=== PATIENT | male | born 1935 | race African-American/Black ===

== ENCOUNTER → 2017-02-26 | Outpatient (CLI) | payer MEDICARE, BC ==
[2017-02-26 17:43] LABS: ASPARTATE AMINO TRANSFERASE 26 U/L (15-37); BLOOD UREA NITROGEN 19 mg/dL (7-18)
== END | disposition home or self-care (01) ==
LOC: LAB 17:00
PROVIDERS: ATTEND Internal Medicine Nephrology
DX: I12.9 Hypertensive chronic kidney disease with stage 1 through stage 4 chronic kidney disease, or unspecified chronic kidney disease (principal); N18.3 Chronic kidney disease, stage 3 (moderate); E55.9 Vitamin D deficiency, unspecified; N25.81 Secondary hyperparathyroidism of renal origin; R35.1 Nocturia; E03.9 Hypothyroidism, unspecified
CPT/HCPCS: 36415; 80053; 81003; 82570; 84156

== ENCOUNTER → 2017-05-22 | Outpatient (CLI) | payer MEDICARE, BC ==
[2017-05-22 09:40] LABS: HEMATOCRIT 28.6 % (39.2-51.8); HEMOGLOBIN 9.4 g/dL (13.7-18.0); WHITE BLOOD COUNT 6.7 x10^3/uL (3.4-10)
[2017-05-22 11:36] LABS: ASPARTATE AMINO TRANSFERASE 63 U/L (15-37); BLOOD UREA NITROGEN 17 mg/dL (7-18)
== END | disposition home or self-care (01) ==
LOC: LAB 09:23
PROVIDERS: ATTEND Nurse Practitioner Family
DX: E03.9 Hypothyroidism, unspecified (principal); D72.829 Elevated white blood cell count, unspecified; E87.1 Hypo-osmolality and hyponatremia; R73.01 Impaired fasting glucose
CPT/HCPCS: 36415; 80053; 83036; 84436; 84443; 85025

== ENCOUNTER → 2017-06-18 | Outpatient (CLI) | payer MEDICARE, BC ==
[2017-06-18 09:20] LABS: HEMATOCRIT 32.2 % (39.2-51.8); HEMOGLOBIN 10.5 g/dL (13.7-18.0); WHITE BLOOD COUNT 6.2 x10^3/uL (3.4-10)
[2017-06-18 09:32] LABS: ASPARTATE AMINO TRANSFERASE 24 U/L (15-37); BLOOD UREA NITROGEN 13 mg/dL (7-18)
== END | disposition home or self-care (01) ==
LOC: LAB 09:02
PROVIDERS: ATTEND Nurse Practitioner Family
DX: R61 Generalized hyperhidrosis (principal); R74.0 Nonspecific elevation of levels of transaminase and lactic acid dehydrogenase [LDH]
CPT/HCPCS: 36415; 80053; 85025

== ENCOUNTER → 2017-07-21 | Outpatient (CLI) | payer MEDICARE, BC | END | disposition home or self-care (01) | LOC: LAB 09:53 | PROVIDERS: ATTEND Family Medicine | DX: R61 Generalized hyperhidrosis (principal) | CPT/HCPCS: 36415; 82670; 84402; 84403 ==

== ENCOUNTER → 2018-01-30 | Outpatient (CLI) | payer MEDICARE, BC ==
[2018-01-30 08:20] LABS: BASOPHILS # (AUTO) 0.04 x10^3/uL (0-0.1); BASOPHILS % (AUTO) 1 % (0-1); EOSINOPHILS % (AUTO) 2 % (1-7); LYMPHOCYTES # (AUTO) 1.71 x10^3/uL (1-3.4); LYMPHOCYTES % (AUTO) 26 % (22-44); MD NO; MEAN CORPUSCULAR HEMOGLOBIN 28.2 pg (27.5-34.5); MEAN CORPUSCULAR HGB CONC 32.8 g/dL (33.2-36.2); MEAN PLATELET VOLUME 6.9 fL (7.4-10.4); MONOCYTES # (AUTO) 0.43 x10^3/uL (0.2-0.8); MONOCYTES % (AUTO) 7 % (2-9); NEUTROPHILS # (AUTO) 4.28 x10^3/uL (1.8-6.8); NEUTROPHILS % (AUTO) 65 % (42-75); PLATELET COUNT 205 x10^3/uL (130-400); RED BLOOD COUNT 4.59 x10^6/uL (4.38-5.82)
[2018-01-30 08:28] LABS: ALANINE AMINOTRANSFERASE 27 U/L (12-78); ALBUMIN 3.7 g/dL (3.4-5.0); ANION GAP 5 mmol/L (5-15); CALCIUM 9.4 mg/dL (8.5-10.1); CHLORIDE 109 mmol/L (98-107); CREATININE 1.39 mg/dL (0.7-1.3)
[2018-01-30 08:31] LABS: ALKALINE PHOSPHATASE 88 U/L (45-117); BILIRUBIN,TOTAL 0.5 mg/dL (0.2-1.0); TOTAL PROTEIN 8.1 g/dL (6.4-8.2)
[2018-01-30 08:32] LABS: MICROSCOPIC AUTO
[2018-01-30 08:38] LABS: CULTURE INDICATED? NO
== END | disposition home or self-care (01) ==
LOC: LAB 07:36
PROVIDERS: ATTEND Internal Medicine Nephrology
DX: I12.9 Hypertensive chronic kidney disease with stage 1 through stage 4 chronic kidney disease, or unspecified chronic kidney disease (principal); N18.3 Chronic kidney disease, stage 3 (moderate); N25.81 Secondary hyperparathyroidism of renal origin; E03.9 Hypothyroidism, unspecified; E78.5 Hyperlipidemia, unspecified; E55.9 Vitamin D deficiency, unspecified; R35.1 Nocturia
CPT/HCPCS: 36415; 80053; 81001; 82570; 84156; 85025

== ENCOUNTER → 2018-06-02 | Outpatient (CLI) | payer MEDICARE, BC ==
[2018-06-02 08:37] LABS: ANION GAP 7 mmol/L (5-15); CALCIUM 9.4 mg/dL (8.5-10.1); CHLORIDE 110 mmol/L (98-107); CHOLESTEROL, TOTAL 150 mg/dL (140-239); CREATININE 1.48 mg/dL (0.7-1.3); TRIGLYCERIDES 92 mg/dL (50-200); VLDL CHOLESTEROL 18 mg/dL (0-25)
[2018-06-02 08:38] LABS: MEAN CORPUSCULAR HEMOGLOBIN 28.7 pg (27.5-34.5); MEAN CORPUSCULAR HGB CONC 33.3 g/dL (33.2-36.2); MEAN PLATELET VOLUME 6.7 fL (7.4-10.4); PLATELET COUNT 190 x10^3/uL (130-400); RED BLOOD COUNT 4.46 x10^6/uL (4.38-5.82); RED CELL DISTRIBUTION WIDTH 16.1 % (9.4-14.8)
[2018-06-02 08:46] LABS: CHOL/HDL RATIO 3.2; HDL CHOL % 31 % (26-37); HDL CHOLESTEROL (DIRECT) 47 mg/dL (40-60); LDL CHOLESTEROL,CALCULATED 85 mg/dL (54-169); LDL/HDL RATIO 1.8 (0.5-3.0)
== END | disposition home or self-care (01) ==
LOC: LAB 08:09
PROVIDERS: ATTEND Family Medicine
DX: D64.9 Anemia, unspecified (principal); E78.2 Mixed hyperlipidemia; E03.8 Other specified hypothyroidism; E06.3 Autoimmune thyroiditis; N18.2 Chronic kidney disease, stage 2 (mild)
CPT/HCPCS: 36415; 80048; 80061; 84443; 85027

== ENCOUNTER → 2020-04-13 | Outpatient (CLI) | payer MEDICARE ==
[~2020-04-13] MED LIST: AMLO1CAP PO; ASPI-496 PO; CHOL10003 PO; HYDR-3240 PO; LEVO125T5 PO; LIOT5TAB10 PO; LOVA40TA2 PO; METF10007 PO; METO25TA91 PO; OMEP10CA5 PO; TADA5TAB2 PO
[2020-04-13 12:23] LABS: BASOPHILS # (AUTO) 0.02 x10^3/uL (0-0.1); BASOPHILS % (AUTO) 0 % (0-1); EOSINOPHILS # (AUTO) 0.09 x10^3/uL (0-0.4); EOSINOPHILS % (AUTO) 1 % (1-7); LYMPHOCYTES # (AUTO) 1.43 x10^3/uL (1-3.4); LYMPHOCYTES % (AUTO) 23 % (22-44); MD NO; MEAN CORPUSCULAR HEMOGLOBIN 27.9 pg (27.5-34.5); MEAN CORPUSCULAR HGB CONC 31.6 g/dL (33.2-36.2); MEAN CORPUSCULAR VOLUME 88.4 fL (81-97); MEAN PLATELET VOLUME 7.1 fL (7.4-10.4); MONOCYTES # (AUTO) 0.35 x10^3/uL (0.2-0.8); MONOCYTES % (AUTO) 6 % (2-9); NEUTROPHILS # (AUTO) 4.45 x10^3/uL (1.8-6.8); NEUTROPHILS % (AUTO) 70 % (42-75); PLATELET COUNT 196 x10^3/uL (130-400); RED BLOOD COUNT 4.52 x10^6/uL (4.38-5.82); RED CELL DISTRIBUTION WIDTH 15.7 % (9.4-14.8)
[2020-04-13 12:35] LABS: ALANINE AMINOTRANSFERASE 25 U/L (12-78); ALBUMIN 3.9 g/dL (3.4-5.0); ANION GAP 4 mmol/L (5-15); CALCIUM 9.8 mg/dL (8.5-10.1); CHLORIDE 109 mmol/L (98-107)
[2020-04-13 12:38] LABS: ALKALINE PHOSPHATASE 82 U/L (45-117); BILIRUBIN,TOTAL 0.5 mg/dL (0.2-1.0)
== END | disposition home or self-care (01) ==
LOC: STAR 11:02
PROVIDERS: ATTEND Surgery Vascular Surgery
DX: Z01.818 Encounter for other preprocedural examination (principal)
CPT/HCPCS: 36415; 80053; 85025; 93005